=== PATIENT | female | born 1970 | race Caucasian/White ===

== ENCOUNTER 2020-04-25 06:13 | Emergency (ER) | payer SELFPAY ==
[~2020-04-25] VITALS: Ht 160 cm; Wt 54.4 kg
[2020-04-25] MEDS ORDERED: KEFLEX500 MG PO (08:30)
[2020-04-25] MEDS ORDERED: STROMECTOL3 MG PO (08:30)
== END 2020-04-25 09:05 | disposition home or self-care (01) ==
LOC: ED 06:13
DX: L98.8 Other specified disorders of the skin and subcutaneous tissue (principal); B89 Unspecified parasitic disease; I10 Essential (primary) hypertension
CPT/HCPCS: 81001; 99283